=== PATIENT | male | born 1955 | race African-American/Black ===

== ENCOUNTER 2024-04-09 18:39 | Emergency (ER) | payer MEDICAID, MEDICARE ==
[~2024-04-09] VITALS: Ht 182.9 cm; Wt 90.0 kg
[2024-04-09 18:41] VITALS: O2SAT 99
[2024-04-09] MEDS: HYDROCODONE/ACETAMINOPHEN 5/325MG TABLET PO ONE (19:54)
[2024-04-09] MEDS ORDERED: IBUP-2029 MT (20:42)
[2024-04-09] MEDS ORDERED: HYDR-4001 MT (20:42)
[2024-04-09 21:16] VITALS: BP 161/90; PULSE 74; RESP 20; TEMP 36.94740; O2SAT 99
== END 2024-04-09 21:18 | disposition home or self-care (01) ==
LOC: ER 18:39
DX: S22.32XA Fracture of one rib, left side, initial encounter for closed fracture (principal); F20.9 Schizophrenia, unspecified; I10 Essential (primary) hypertension; I25.2 Old myocardial infarction; X58.XXXA Exposure to other specified factors, initial encounter; Y93.89 Activity, other specified; Y92.89 Other specified places as the place of occurrence of the external cause; Y99.8 Other external cause status
CPT/HCPCS: 99284; 71101; 73080; 73562; A4663; A4606

== ENCOUNTER 2024-05-01 15:18 | Emergency (ER) | payer MEDICARE, MEDICAID ==
[~2024-05-01] VITALS: Ht 182.9 cm; Wt 118.0 kg
[~2024-05-01 15:18] MED LIST: HYDR-4001 MT; IBUP-2029 MT
[2024-05-01 15:26] VITALS: BP 118/72; PULSE 78; RESP 15; O2SAT 98
== END 2024-05-01 23:13 | disposition left against medical advice (07) ==
LOC: ER 15:18
DX: R11.2 Nausea with vomiting, unspecified (principal); Z53.21 Procedure and treatment not carried out due to patient leaving prior to being seen by health care provider
CPT/HCPCS: 93005

== ENCOUNTER 2024-05-07 03:16 | Emergency (ER) | payer MEDICARE, MEDICAID ==
[~2024-05-07] VITALS: Ht 167.6 cm; Wt 100.0 kg
[2024-05-07 03:23] VITALS: O2SAT 100
[2024-05-07] MEDS: KETOROLAC 15MG/ML VIAL IM ONE (05:13)
[2024-05-07] MEDS: KETOROLAC 15MG/ML VIAL IM NR (05:16)
[2024-05-07] MEDS ORDERED: LIDO700A15 TP (05:32)
[2024-05-07] MEDS ORDERED: NAPR-1176 MT (05:32)
[2024-05-07] MEDS: HYDRALAZINE HCL 25MG TABLET PO ONE (05:48)
[2024-05-07 06:30] VITALS: BP 169/99; PULSE 96; RESP 16; TEMP 37.11408; O2SAT 100
== END 2024-05-07 06:38 | disposition home or self-care (01) ==
LOC: ER 03:16
DX: G89.29 Other chronic pain (principal); M25.561 Pain in right knee; F20.9 Schizophrenia, unspecified; I10 Essential (primary) hypertension; F31.9 Bipolar disorder, unspecified
CPT/HCPCS: 99283; 73562; 96372; J1885

== ENCOUNTER 2024-08-27 13:38 | Emergency (ER) | payer MEDICARE, MEDICAID ==
[~2024-08-27] VITALS: Ht 180.3 cm; Wt 110.0 kg
[~2024-08-27 13:38] MED LIST changes: +LIDO700A15 TP; +NAPR-1176 MT
[2024-08-27 13:54] VITALS: TEMP 36.8; O2SAT 99
[2024-08-27] MEDS: SODIUM CHLORIDE 0.9% 1,000 ML IV ONE (14:48)
[2024-08-27 14:56] LABS: BASOPHILS % 0.5 % (0.0-2.0); EOSINOPHILS % 2.3 % (0.0-5.0); HEMATOCRIT. 43.4 % (42.0-52.0); HEMOGLOBIN. 13.6 g/dL (14.0-18.0); MEAN CORPUSCULAR HEMOGLOBIN 26.5 pg (28.0-32.0); MEAN CORPUSCULAR HGB CONC 31.2 g/dL (31.0-37.0); MEAN CORPUSCULAR VOLUME 84.8 fL (80.0-94.0); MEAN PLATELET VOLUME 8.7 fl (7.4-10.4); MONOCYTES % 7.7 % (2.0-8.0); NEUTROPHILS % 74.5 % (40.0-76.0); PLATELET 270 x1000/uL (130-400); RED BLOOD CELL COUNT 5.12 mill/uL (4.7-6.1); RED CELL DISTRIBUTION WIDTH 14.8 % (11.6-14.6); WHITE BLOOD COUNT 13.6 x1000/uL (4.5-11.0)
[2024-08-27 15:05] LABS: CHLORIDE 105 mEq/L (98-107); POTASSIUM 4.2 mEq/L (3.5-5.1); SODIUM 140 mEq/L (136-145)
[2024-08-27 15:06] LABS: CALCIUM 9.8 mg/dL (8.7-10.4); CARBON DIOXIDE 28 mEq/L (21-32)
[2024-08-27 15:11] LABS: CREATININE 1.3 mg/dL (0.6-1.3); GLUCOSE 123 mg/dL (70-105); UREA NITROGEN BLOOD 20 mg/dL (9-23)
[2024-08-27 15:13] LABS: TROPONIN I HIGH SENSITIVITY 11 ng/L (3.0-53)
[2024-08-27 15:18] LABS: INR 0.9; PARTIAL THROMBOPLASTIN TIME 24.2 sec (23.4-31.0); PROTHROMBIN TIME 10.2 sec (9.6-11.0)
[2024-08-27 16:59] VITALS: BP 163/86; PULSE 94; RESP 22; O2SAT 96
[2024-08-27] MEDS ORDERED: ASPIRIN 81MG TABLET PO ONE (17:15)
== END 2024-08-27 17:56 | disposition left against medical advice (07) ==
LOC: ER 13:38
DX: S00.01XA Abrasion of scalp, initial encounter (principal); R55 Syncope and collapse; I10 Essential (primary) hypertension; F20.9 Schizophrenia, unspecified; Z86.73 Personal history of transient ischemic attack (TIA), and cerebral infarction without residual deficits; Z79.1 Long term (current) use of non-steroidal anti-inflammatories (NSAID); Z79.899 Other long term (current) drug therapy; W22.01XA Walked into wall, initial encounter; Y93.89 Activity, other specified; Y92.89 Other specified places as the place of occurrence of the external cause; Y99.8 Other external cause status
CPT/HCPCS: 99285; 96360; 70450; 71045; 80048; 83880; 85025; 85610; 85730; 84484; 36415; 93005; J7030